=== PATIENT | male | born 1950 | race Caucasian/White ===

== ENCOUNTER 2021-07-14 00:17 | Inpatient (IN) | payer OTHER, MEDICARE, MEDICAID ==
[~2021-07-14] VITALS: Ht 167.6 cm; Wt 101.2 kg
[2021-07-15 01:35] VITALS: BP 134/108; PULSE 90; TEMP 99.1
[2021-07-15] MEDS ORDERED: ELIQUIS 5MG PO (02:16)
[2021-07-15] MEDS ORDERED: PROAIR HFA0.09 MG/AC IH (02:16)
[2021-07-15] MEDS ORDERED: VTAMINC250TA PO (02:16)
[2021-07-15] MEDS ORDERED: ASPIRIN 81M81 MG/TA2 PO (02:17)
[2021-07-15] MEDS ORDERED: LIPITOR 80MG80 MG PO (02:17)
[2021-07-15] MEDS ORDERED: 00186-0370-20 IH (02:18)
[2021-07-15] MEDS ORDERED: ZYRTEC 10MG10 MG PO (02:18)
[2021-07-15] MEDS ORDERED: FERRO-TIME325 MG PO (02:19)
[2021-07-15] MEDS ORDERED: LASIX 40MG TABL40 MG PO (02:19)
[2021-07-15] MEDS ORDERED: PRINIVIL5 MG PO (02:21)
[2021-07-15] MEDS ORDERED: TOPROL XL200 MG PO (02:22)
[2021-07-15] MEDS ORDERED: ALDACTONE 25MG25 M1 PO (02:23)
[2021-07-15] MEDS ORDERED: FLOMAX 0.40.4 MG/CAP PO (02:23)
[2021-07-15] MEDS ORDERED: ONE-A-DAY ESSE1 EACH PO (02:23)
[2021-07-15] MEDS ORDERED: PEPCID 20MG TAB20 MG PO (02:24)
--- NOTE | 2021-07-15 03:07 | NUR ---
ARRIVED TO UNIT VIA EMS, AWAKE, ALERT, ORIENTED X 4, VERY CHALKYITSIK AND EASILY AGGITATED WITH PEOPLE NOT SPEAKING LOUD ENOUGH OR DIRECTLY TO HIM OR TOO MANY PEOPLE TALKING AT ONCE, UPDATED ON PLAN OF CARE, BED BATH GIVEN, HAIR WASHED, LOTION APPLIED, ASSESSMENT COMPLETED.
[2021-07-15 03:25] LABS: INR 1.7 (0.8-3.0); PROTHROMBIN TIME 18.9 SECONDS (9.7-12.8)
[2021-07-15 03:35] LABS: ANION GAP 6 mmol/L (7-16); BLOOD UREA NITROGEN 33 mg/dL (9-20); CALCIUM 8.3 mg/dL (8.4-10.2); CARBON DIOXIDE 28 mmol/L (22-30); CHLORIDE 104 mmol/L (98-107); CREATININE, serum 1.76 (0.66-1.25); GLUCOSE 105 mg/dL (74-106); POTASSIUM 5.5 mmol/L (3.4-5.0); SODIUM 137 mmol/L (137-145)
[2021-07-15 03:41] LABS: SALICYLATE < 1.0 mg/dL
[2021-07-15 03:46] LABS: TROPONIN-I 0.024 ng/mL (0.000-0.035)
--- NOTE | 2021-07-15 03:46 | NUR ---
Vancomycin Initial Dosing Pharmacy Note Ordering provider: Madisyn Dinh E., DO Indication/duration: RLE CELLULITIS TROUGH GOAL: 10-20 HX: NONE IDENTIFIED BMI: 36.7 WT: 103 KG ADJBW: 79 KG OSH SCR: 1.72 ADJBW ESTCRCL ~ 46 ML/MIN T1/2 ~ 16H TMAX: 99.1 OSH LABS WBC: 17.5 LA: 3.2 BCX2 IN PROCESS NO IMAGING AVAILABLE AT THIS TIME PER PROVIDER, PT RECEIVED VANCO 1GM AT OSH ON 07/15 @ 0000. WILL START A MAINTENANCE REGIMEN OF 1.25 GM Q24H, AND START 8 HOURS AFTER INITIAL 1 GM DOSE TO ACCOUNT FOR SUB-OPTIMAL LOADING DOSE. WILL MONITOR RENAL FUNCTION, MICRO, AND TREATMENT PLAN FOR NEED TO ADJUST THERAPY. THANK YOU FOR THIS DOSING CONSULT!
[2021-07-15 04:14] VITALS: BP 154/93; PULSE 96; TEMP 97.5
[2021-07-15 04:18] LABS: COLLECTION METHOD CLEAN CATCH
[2021-07-15 04:23] LABS: PH 5 (5-8); SQUAMOUS EPITHELIAL 0-2 /hpf; URINE APPEARANCE Clear; URINE BACTERIA None Seen /hpf; URINE BILIRUBIN Negative (NEGATIVE); URINE BLOOD 2+ (NEGATIVE); URINE COLOR Yellow; URINE GLUCOSE Negative (NEGATIVE); URINE KETONE Negative (NEGATIVE); URINE LEUKOCYTE ESTERASE Negative (NEGATIVE); URINE NITRATE Negative (NEGATIVE); URINE PROTEIN(semi-quant) Negative (NEGATIVE); URINE UROBILINOGEN Negative (NEGATIVE)
[2021-07-15 06:43] LABS: MEAN CELL VOLUME 122 fl (80.0-100.0); MEAN CORPUSCULAR HGB CONC 29 g/dl (33.0-37.0); MEAN PLATELET VOLUME 10.6 fl (7.4-10.4); PLATELET COUNT 163 K/mm3 (130-400); RED BLOOD COUNT 2.63 M/mm3 (4.20-5.60); REDCELL DISTRIBUTION WIDTH-CV 18.1 % (11.5-14.5)
[2021-07-15 06:47] LABS: HEMATOCRIT 32.1 % (42.0-52.0); HEMOGLOBIN 9.4 g/dl (13.5-18.0); MEAN CORPUSCULAR HEMOGLOBIN 36 pg (27.0-31.0)
[2021-07-15 08:32] LABS: BAND 21 % (0-10); HYPOCHROMIA 3+; LYMPHOCYTE 3 % (20.0-51.0); NEUTROPHILS 75 % (42.0-75.2); SCHISTOCYTES 1+
[2021-07-15 08:33] LABS: OVALOCYTES 1+; POIKILOCYTOSIS 1+
[2021-07-15 09:41] LABS: RETIC # 0.1 M/mm3 (0.02-0.16); RETIC % 3.7 % (0.5-3.52)
[2021-07-15 09:51] LABS: CALCIUM 8.2 mg/dL (8.4-10.2); CREATININE, serum 1.92 (0.66-1.25); POTASSIUM 5.6 mmol/L (3.4-5.0)
--- NOTE | 2021-07-15 09:52 | NUR ---
pharmaceutical worker met with patient to discuss discharge plan. Patient reports that he lives alone at home in [place]. Patient states he is fully independent with his activities of daily living and uses a cane/walker as he feels like he needs it. [facility] and [facility]. Patient is currently on O2 in the room and he reports that he does use O2 at home. Patient states he get his O2 through the [facility]. Patient does not have a DPOA-HC and does not wish to establish one. Patient is not but reports that he "thinks" he has 4-5 kinds spread through out the states. Patient was able to name two sons, Luis Eduardo and Socrates, however states he does not have phone numbers for them and does not talk/have a relationship with his children. pharmaceutical worker educated the patient that since he does not have a DPOA-HC that his children are his legal agents. pharmaceutical worker will follow the patients needs. Patient reports that he has [facility], but does not have any other insurance. *Discharge plan: pending pt/ot rec's*
[2021-07-15 09:57] LABS: IRON,SERUM 19 ug/dL (35-150)
[2021-07-15 10:06] LABS: TOTAL IRON BINDING CAPACITY 369 ug/dL (261-462)
--- NOTE | 2021-07-15 10:15 | NUR ---
First visit from the correspondence review clerk. No needs right now.
--- NOTE | 2021-07-15 10:27 | NUR ---
Per ED documentaion, there is evidence of self neglect and unsafe living conditions. APS report made by this psychiatric social worker : case # [id number]
--- NOTE | 2021-07-15 10:35 | NUR ---
Assessment completed, alert/oriented, hard of hearing , wounds/blisters to bilateral lower extrm., 3-4+ edema and weeping, wound culture obtained and sent to lab, patient wears O2 @ 3L. at baseline / he reports breathing is worse at this time, lungs are diminished throughout with exp. wheezing throughout, O2 sats are WNL on the 3L. via Nasal cannula, heart irregular/ a.fib on tele and rate is controlled, IV Lasix and morning meds given, patient is unable to ambulate and is a heavy assist even just for pivot transfers, PT/ OT ordered, he has very poor hygiene and overall self care, night shift manager provided bed bath and intense effort to improve hygiene, skin integrity overall is poor with redness/excoriation to his under arms/ groin/ panis and skin folds, we are applying Desenex powder for yeast and moisture management, will sarabjitnue to monitor
[2021-07-15 12:26] VITALS: BP 119/94; PULSE 84; TEMP 97.9
[2021-07-15 16:33] VITALS: BP 92/47; PULSE 72; TEMP 98
[2021-07-15 18:18] LABS: PROCALCITONIN 0.58 ng/mL (0.00-0.09)
[2021-07-15 19:17] VITALS: BP 104/48; PULSE 81
--- NOTE | 2021-07-15 20:00 | NUR ---
Assessment complete. Patient complains of pain in his coccyx and BLE; PRN dilaudid administered. Pt alert and oriented and wears 3 liters O2 with no signs of increased WOB. Lungs are clear with diminished bases and HR is irregular with normal rate. BLE are edematous, redenned and have multiple wounds throughout. Bumex gtt infusing. Dawn catheter in place and draining dark urine. Comfort measures provided and call light within reach.
[2021-07-16] VITALS (7 sets, daily range): BP systolic 94–124; BP diastolic 42–56; PULSE 70–100; TEMP 98.4–98.9
[2021-07-16 07:03] LABS: BASO % 0.3 % (0.0-2.0); EOS # 0.1 (0.0-0.7); GRAN # 11.6 (1.4-6.5); GRAN % 85.1 % (42.2-75.2); LYMPH # 0.7 (1.2-3.4); LYMPH % 5.4 % (20.0-51.0); MEAN CORPUSCULAR HGB CONC 30 g/dl (33.0-37.0); MEAN PLATELET VOLUME 10.3 fl (7.4-10.4); MONO % 7.1 % (1.7-9.3); PLATELET COUNT 148 K/mm3 (130-400); RED BLOOD COUNT 2.56 M/mm3 (4.20-5.60)
[2021-07-16 07:05] LABS: HEMATOCRIT 29.1 % (42.0-52.0); HEMOGLOBIN 8.8 g/dl (13.5-18.0); MEAN CELL VOLUME 114 fl (80.0-100.0); MEAN CORPUSCULAR HEMOGLOBIN 34 pg (27.0-31.0)
[2021-07-16 07:24] LABS: CALCIUM 8.9 mg/dL (8.4-10.2); CREATININE, serum 1.86 mg/dL (0.72-1.25); POTASSIUM 4.7 mmol/L (3.5-4.5)
--- NOTE | 2021-07-16 14:19 | NUR ---
television maintenance worker contacted the [facility] for emergency contact information. Patient see's the [facility] and is on Team 2. They have his sister Jayleen ([phone]), who resides in [place], listed as his emergency contact.
--- NOTE | 2021-07-16 15:23 | NUR ---
SW met with patient at bedside to discuss recommendations of rehab. Patient had difficulty clarifying where he had been to receive treatment for his feet but he thinks it was in [place]. When discussing location, he stated he would prefer to be near his home - [facility] [place]. Patient remains on IV antibiotics. SW sent referrals to [facility] [facility], [facility] (in [place]) [facility] and [facility].
[2021-07-17] VITALS (7 sets, daily range): BP systolic 115–134; BP diastolic 49–70; PULSE 75–108; TEMP 97.8–98.7
[2021-07-17 07:58] LABS: MEAN CELL VOLUME 112 fl (80.0-100.0); MEAN CORPUSCULAR HGB CONC 31 g/dl (33.0-37.0); MEAN PLATELET VOLUME 10.3 fl (7.4-10.4); PLATELET COUNT 154 K/mm3 (130-400); RED BLOOD COUNT 2.48 M/mm3 (4.20-5.60); REDCELL DISTRIBUTION WIDTH-CV 17.8 % (11.5-14.5)
[2021-07-17 07:59] LABS: HEMATOCRIT 27.7 % (42.0-52.0); HEMOGLOBIN 8.5 g/dl (13.5-18.0); MEAN CORPUSCULAR HEMOGLOBIN 34 pg (27.0-31.0)
[2021-07-17 08:35] LABS: BAND 2 % (0-10); EOSINOPHIL 1 % (0-4); LYMPHOCYTE 4 % (20.0-51.0); NEUTROPHILS 87 % (42.0-75.2)
[2021-07-17 08:38] LABS: ANISOCYTOSIS 1+; HYPOCHROMIA 3+; PLATELET ESTIMATE NORMAL (NORMAL)
[2021-07-17 08:48] LABS: CALCIUM 9.4 mg/dL (8.4-10.2); CREATININE, serum 1.29 mg/dL (0.72-1.25); POTASSIUM 4.4 mmol/L (3.5-4.5)
[2021-07-18] VITALS (13 sets, daily range): BP systolic 90–153; BP diastolic 45–83; PULSE 79–100; TEMP 97.3–99.4
--- NOTE | 2021-07-18 06:13 | NUR ---
PT HAD UNEVENTFUL NIGHT, 02 REMAINS AT 4L NC SATURATING 92 -93 PERCENT, PT OUTPUT NOTED AND RECORDED, PT REPORTS PAIN TO BLE 4/10. ANTIBIOTICS ADMINSITERED ORDERED. MEDICATION ADMINISTERED ORDERED. VSS. PT CONSENT SIGNED AND PLACED IN CHART FOR EGD. PT EXPRESSES NO ADDITIONAL NEEDS AT THIS TIME. CALL LIGHT WTIHIN REACH.
[2021-07-18 06:49] LABS: MEAN CELL VOLUME 110 fl (80.0-100.0); MEAN CORPUSCULAR HGB CONC 32 g/dl (33.0-37.0); MEAN PLATELET VOLUME 10.6 fl (7.4-10.4); PLATELET COUNT 168 K/mm3 (130-400); RED BLOOD COUNT 2.51 M/mm3 (4.20-5.60); REDCELL DISTRIBUTION WIDTH-CV 17.3 % (11.5-14.5)
[2021-07-18 06:52] LABS: HEMATOCRIT 27.5 % (42.0-52.0); HEMOGLOBIN 8.7 g/dl (13.5-18.0); MEAN CORPUSCULAR HEMOGLOBIN 35 pg (27.0-31.0)
[2021-07-18 07:07] LABS: ALBUMIN 2.7 gm/dL (3.4-4.8); CALCIUM 9.4 mg/dL (8.4-10.2); CREATININE, serum 1.09 mg/dL (0.72-1.25); MAGNESIUM 1.4 mg/dL (1.6-2.6); PHOSPHOROUS 3.8 mg/dL (2.3-4.7); POTASSIUM 4.3 mmol/L (3.5-4.5)
--- NOTE | 2021-07-18 07:56 | NUR ---
PT RECEIVED REPORT FROM JULIO CHAVEZ. PT AWAKE/ALERT IN BED. DENIES PAIN. NO NEEDS AT THIS TIME. CALL LOMBARDI IN REACH
[2021-07-18 08:15] LABS: BAND 2 % (0-10); EOSINOPHIL 3 % (0-4); LYMPHOCYTE 11 % (20.0-51.0); NEUTROPHILS 75 % (42.0-75.2); NUCLEATED RED BLOOD CELL 1 (0-6); PLATELET ESTIMATE NORMAL (NORMAL)
[2021-07-18 08:16] LABS: ANISOCYTOSIS 1+; HYPOCHROMIA 1+
--- NOTE | 2021-07-18 15:46 | NUR ---
PT WENT DOWN FOR EGD
--- NOTE | 2021-07-18 16:45 | NUR ---
PT RETURNED FROM EGD. VITAL SIGNS STABLE. PT AWAKE/ALERT/ORIENT. DENIES PAIN
--- NOTE | 2021-07-18 18:00 | NUR ---
PT BP DROPPED TO 77/60. NS RUN OPEN IV. PT BP CAME UP TO 91/47. PT ASYMPTOMATIC, WITH SOME A-FIB RVR W/PVCs. CHARGE NURSE, ANU NOTIFIED. PT STABLE. NORMAL HEART RATE AGAIN. LATEST VITALS 99/50, 84, 93% ON 3L O2, 24 RESPIRATIONS. PT SITTING UP IN BED WATCHING TV. DENIES PAIN. NO OTHER NEEDS AT THIS TIME. WILL CONTINUE TO MONITOR.
--- NOTE | 2021-07-18 18:03 | NUR ---
PT WOUND CARE PERFORMED AT 1730 ON BLE
--- NOTE | 2021-07-18 18:05 | NUR ---
PT HAD EGD THIS AFTERNOON W/BIOPSY. PT HAD EPISODE OF HYPOTENSION, BUT IS STABLE NOW. PT DENIES PAIN. SITTING UP IN BED WATCHING TV. NO NEEDS AT THIS TIME. CALL LOMBARDI IN REACH. WILL CONTINUE TO MONITOR
--- NOTE | 2021-07-18 19:30 | NUR ---
Bedside shift report received, assumed care for shift manager. Assessment complete. A&Ox3. Very grouchy tonight-yelling/cursing at staff-yells out when barely touched. VS stable. Blood pressure has improved since episode of hypotension and receiving fluid bolus. Dawn cath with clear yellow output. Bilat lower extremities with fresh dressing change-gauze/abd/kerlix. Plan of care discusse for this shift to include Meds/calling for questions/concerns. Verbalizes understanding/denies needs. Call light in reach. Will monitor.
[2021-07-19] VITALS (7 sets, daily range): BP systolic 90–108; BP diastolic 44–62; PULSE 75–93; TEMP 97.5–98.9
--- NOTE | 2021-07-19 06:07 | NUR ---
Slept well this shift. Denied pain/nausea/shortness of breath. VS remained stable. Dawn cath with clear yellow urine. Tele reports A-Fib. O2@4L/NC. Denies current needs. Call light in reach. Will monitor.
[2021-07-19 06:43] LABS: MEAN CELL VOLUME 110 fl (80.0-100.0); MEAN CORPUSCULAR HGB CONC 31 g/dl (33.0-37.0); MEAN PLATELET VOLUME 10.5 fl (7.4-10.4); PLATELET COUNT 185 K/mm3 (130-400); RED BLOOD COUNT 2.52 M/mm3 (4.20-5.60); REDCELL DISTRIBUTION WIDTH-CV 17.3 % (11.5-14.5)
[2021-07-19 06:49] LABS: HEMATOCRIT 27.7 % (42.0-52.0); HEMOGLOBIN 8.6 g/dl (13.5-18.0); MEAN CORPUSCULAR HEMOGLOBIN 34 pg (27.0-31.0)
[2021-07-19 07:05] LABS: CALCIUM 8.8 mg/dL (8.4-10.2); CREATININE, serum 1.33 mg/dL (0.72-1.25); MAGNESIUM 1.9 mg/dL (1.6-2.6); POTASSIUM 4.2 mmol/L (3.5-4.5)
[2021-07-19 07:28] LABS: BAND 15 % (0-10); EOSINOPHIL 1 % (0-4); LYMPHOCYTE 4 % (20.0-51.0); METAMYELOCYTE 3 % (0-0); NEUTROPHILS 68 % (42.0-75.2); OVALOCYTES 1+; PLATELET ESTIMATE NORMAL (NORMAL)
--- NOTE | 2021-07-19 08:34 | NUR ---
Pt assessment complete. Pt is sitting up in bed upon entry, he is A/O x4. His breathing is even and unlabored on 4L O2 via NC. Pt denies any SOB. States he has some soreness to the lower legs after PT this am. No N/V/D. Breakfast ordered for patient. Nereyda GAXIOLA. No further needs.
--- NOTE | 2021-07-19 13:38 | NUR ---
LIYA faxed referral to [facility]; spoke with Nain and he will review referral. This worker attempted to talk to patient about referral and family contacts but patient was sleeping and unable to arounse him. LIYA will try later
--- NOTE | 2021-07-19 18:27 | NUR ---
Dressings to bilateral lower legs changed, xeroform, nonstick pads and krilex placed. Tylenol administered for pain. Nereyda GAXIOLA. Isolation precautions in place.
[2021-07-20 04:50] VITALS: BP 104/42; PULSE 83; TEMP 98.8
--- NOTE | 2021-07-20 05:44 | NUR ---
pt had uneventful night, antibiotics administered as ordered, 02 4l nc, ble dressings c/d/i. All needs met. call light within reach
[2021-07-20 06:41] LABS: MEAN CELL VOLUME 110 fl (80.0-100.0); MEAN CORPUSCULAR HGB CONC 31 g/dl (33.0-37.0); MEAN PLATELET VOLUME 10.5 fl (7.4-10.4); PLATELET COUNT 188 K/mm3 (130-400); RED BLOOD COUNT 2.44 M/mm3 (4.20-5.60); REDCELL DISTRIBUTION WIDTH-CV 17.5 % (11.5-14.5)
[2021-07-20 06:48] LABS: HEMATOCRIT 26.8 % (42.0-52.0); HEMOGLOBIN 8.3 g/dl (13.5-18.0); MEAN CORPUSCULAR HEMOGLOBIN 34 pg (27.0-31.0)
[2021-07-20 07:13] LABS: CALCIUM 8.6 mg/dL (8.4-10.2); CREATININE, serum 1.52 mg/dL (0.72-1.25)
[2021-07-20 07:31] LABS: BAND 15 % (0-10); EOSINOPHIL 2 % (0-4); LYMPHOCYTE 6 % (20.0-51.0); METAMYELOCYTE 1 % (0-0); MYELOCYTE 2 % (0-0); NEUTROPHILS 63 % (42.0-75.2)
[2021-07-20 07:32] LABS: ANISOCYTOSIS 2+; MICROCYTOSIS 2+
[2021-07-20 07:33] LABS: OVALOCYTES 1+; PLATELET ESTIMATE NORMAL (NORMAL); TEAR DROP CELLS 1+
[2021-07-20 08:10] VITALS: BP 99/59; PULSE 87; TEMP 97.9
--- NOTE | 2021-07-20 11:40 | NUR ---
LIYA met with Nain from [facility]; he is meeting with patient at this time
[2021-07-20 12:44] VITALS: BP 101/52; PULSE 89; TEMP 98
[2021-07-20 15:33] VITALS: BP 111/53; PULSE 80; TEMP 97.8
[2021-07-20 19:44] VITALS: BP 112/48; PULSE 80; TEMP 98.5
[2021-07-20 22:17] VITALS: BP 93/46; PULSE 84
[2021-07-21 04:00] VITALS: BP 105/54; PULSE 80; TEMP 98.3
--- NOTE | 2021-07-21 05:36 | NUR ---
pt had uneventful night, 02 3.5L, antibiotics adminsitered as ordered, ble dressings c/d/i, becker care conducted, all needs met. call light within reach.
[2021-07-21 07:44] VITALS: BP 117/50; PULSE 95; TEMP 98.9
[2021-07-21 08:04] LABS: MEAN CELL VOLUME 112 fl (80.0-100.0); MEAN CORPUSCULAR HGB CONC 30 g/dl (33.0-37.0); MEAN PLATELET VOLUME 10.5 fl (7.4-10.4); PLATELET COUNT 195 K/mm3 (130-400); RED BLOOD COUNT 2.59 M/mm3 (4.20-5.60); REDCELL DISTRIBUTION WIDTH-CV 17.7 % (11.5-14.5)
[2021-07-21 08:13] LABS: HEMOGLOBIN 8.8 g/dl (13.5-18.0); MEAN CORPUSCULAR HEMOGLOBIN 34 pg (27.0-31.0)
[2021-07-21 08:28] LABS: CALCIUM 8.7 mg/dL (8.4-10.2); CREATININE, serum 1.49 mg/dL (0.72-1.25); POTASSIUM 4.2 mmol/L (3.5-4.5)
[2021-07-21 08:57] LABS: BAND 5 % (0-10); BASOPHIL 1 % (0-2); EOSINOPHIL 4 % (0-4); LYMPHOCYTE 6 % (20.0-51.0); METAMYELOCYTE 2 % (0-0); MYELOCYTE 5 % (0-0); NEUTROPHILS 71 % (42.0-75.2)
[2021-07-21 09:00] LABS: HYPOCHROMIA 3+; PLATELET ESTIMATE NORMAL (NORMAL)
--- NOTE | 2021-07-21 10:04 | NUR ---
Request from Nain (Addi) for LIYA to ask patient his "team color" but patient had no idea what this meant. Patient states he did not have a doctor in [place] but he has been seeing (?) Jose at the [place]. Patient believes this is actually a P.A. LIYA contacted Nain to inform him of the above info. LIYA will contact [facility] to inform them of [facility] as the "nearest" hospital for patient. LIYA will continue to follow.
[2021-07-21 12:49] VITALS: BP 114/52; PULSE 94
--- NOTE | 2021-07-21 13:43 | NUR ---
Angélica with [facility] [employer] calls social media job titles and advised that they have an open case and are attempting to meet with patient. Worker advised of hospitalization and discharge planning. Angélica states they will plan to visit patient in the hospital today. Worker confirmed that patient's primary care provider is [facility] [place]. Radha, nurse in [facility] patient's last contact with Dr Garcia was a phone call visit in December of 2020. Radha stated patient has refused home telehealth visit set up.
--- NOTE | 2021-07-21 14:31 | NUR ---
LIYA recd call from [facility] (Asya), stating they were responding to a referral sent to them last week. This worker discussed d/c planning with Arabella Cabrera and she [facility].
[2021-07-21 15:57] VITALS: BP 124/57; PULSE 85
[2021-07-21 20:22] VITALS: BP 116/56; PULSE 101; TEMP 99.8
--- NOTE | 2021-07-21 22:06 | NUR ---
PT WOUND CARE CONDUCTED AT 2200 THIS NIGHT, PETROLEUM PAD, KERLEX, GAUZE PADS, AND GAUZE DRESSING USED ON BLE. PT TOLERATED DRESSING CHANGE WELL. DRESSING C/D/I.
[2021-07-21 23:09] VITALS: BP 107/58; PULSE 90; TEMP 98.7
[2021-07-22 03:16] VITALS: BP 130/63; PULSE 82; TEMP 98.9
--- NOTE | 2021-07-22 04:06 | NUR ---
TELE CALLED THIS NURSE TO INFORM OF A 7BEAT VTACH RUN, PT DENIES CHEST PAIN,SOA. VSS, PT STATES " I WAS PICKING AT THE STICKERS BECAUSE THEY ARE ITCHY", REDNESS AND IRRITATION NOTED ON PT LA LEAD, THIS NURSE CLEANED PT'S AREA OF IRRITAION AND PLACED NEW ELECTRODES.
--- NOTE | 2021-07-22 06:14 | NUR ---
PT HAD UNEVENTFUL NIGHT. 02 4LNC, ANTIBIOTICS ADMINISTERED ORDERED. ALL NEEDS MET. CALL LIGHT WITHIN REACH. CONTACT PRECAUTIONS REMAIN IN PLACE.
[2021-07-22 06:55] LABS: MEAN CELL VOLUME 110 fl (80.0-100.0); MEAN CORPUSCULAR HGB CONC 31 g/dl (33.0-37.0); MEAN PLATELET VOLUME 10.4 fl (7.4-10.4); PLATELET COUNT 199 K/mm3 (130-400); REDCELL DISTRIBUTION WIDTH-CV 17.5 % (11.5-14.5)
[2021-07-22 06:58] LABS: HEMATOCRIT 28.7 % (42.0-52.0); HEMOGLOBIN 8.8 g/dl (13.5-18.0); MEAN CORPUSCULAR HEMOGLOBIN 34 pg (27.0-31.0)
[2021-07-22 07:31] LABS: CALCIUM 9.1 mg/dL (8.4-10.2); CREATININE, serum 1.39 mg/dL (0.72-1.25); POTASSIUM 4.1 mmol/L (3.5-4.5)
[2021-07-22 07:44] VITALS: BP 113/64; PULSE 77; TEMP 98.2
--- NOTE | 2021-07-22 07:53 | NUR ---
LOLY SANDOVAL REPORTED INC SOMNOLENCE FROM PT. VITALS NORMAL. WENT TO ASSESS PT. PT WOULD FALL ASLEEP WHILE TRYING TO ASSESS NEURO STATUS. TAINA CALLED AND ORDERED TO CONTINUE TO MONITOR. RECIEVED CALL FROM TELE AT 0801 SAYING PT HAD 18 BEAT RUN OF VTACH BUT WENT BACK INTO AFIB. TAINA KATZ NOTIFIED AND CAME TO ASSESS PT. TAINA ABLE TO AROUSE PT AND DO NEURO ASSESSMENT, PT THEN ALERT ENOUGH TO TAKE MORNING MEDICATIONS. HELPED PT ORDER BREAKFAST. NO OTHER NEEDS.
[2021-07-22 10:45] LABS: MAGNESIUM 2.1 mg/dL (1.6-2.6)
[2021-07-22 10:53] LABS: TROPONIN-I 0.024 ng/mL (0.00-0.033)
[2021-07-22 12:15] VITALS: BP 115/60; PULSE 67; TEMP 97.8
--- NOTE | 2021-07-22 15:17 | NUR ---
kitchen worker met with patient to discuss placement options. Patient will need to start a [employer] application. SW facilitated getting the patient in contact with his bank and they have sent copies of bank statements. Information will be passed along to our financial assistance team to begin this process. kitchen worker addressed the need/importance of completing a DPOA-HC. The emergency contact he has on file with the [facility] is his sister Jayleen, who the patient reports passed this past December. He is exceptionally unwilling to provide additional contacts for a DPOA-HC. kitchen worker addressed the patients participation with PT/OT. Patient reports that his feet hurting are the main reason to not working with them, however is willing to try walking if he was supported with slipper socks. Nursing staff notified. Attempts were made to reach PT but were unsuccessful. Patient received his Covid vaccine through [facility] in [place].
[2021-07-22 16:27] VITALS: BP 131/51; PULSE 84; TEMP 98.1
--- NOTE | 2021-07-22 17:29 | NUR ---
PT PLEASANT, AOX4, DINNER IN FRONT OF PT, SPRITE BROUGHT IN PER PT REQUEST, PT DOES NOT REPORT PAIN AT THIS TIME, NO OTHER NEEDS
--- NOTE | 2021-07-22 21:05 | NUR ---
ALERT AND OX4. RESTING QUIELTY TONIGHT. DENIES CHEST PAIN SOA OR DIZZY. YARIEL LOWER LEG CELLUTIS WRAPPED IN GAUZE. NO C/O GENERAL PAIN . WALTON CATH TO DD YELLOW URINE W SEDIMENT. PM MEDS GIVEN. CALL LIGHT WI REACH. PRECAUTIONS MAINTAINED.
[2021-07-22 21:30] VITALS: BP 109/45; PULSE 72; TEMP 98.5
[2021-07-23 04:07] VITALS: BP 120/61; PULSE 81; TEMP 98.4
--- NOTE | 2021-07-23 05:41 | NUR ---
RESTED THROUGH THE NIGHT WIHTOUT INCIDENT. NEEDS MET.
[2021-07-23 06:02] LABS: MEAN CELL VOLUME 108 fl (80.0-100.0); MEAN CORPUSCULAR HGB CONC 31 g/dl (33.0-37.0); MEAN PLATELET VOLUME 10.3 fl (7.4-10.4); PLATELET COUNT 230 K/mm3 (130-400); RED BLOOD COUNT 2.73 M/mm3 (4.20-5.60); REDCELL DISTRIBUTION WIDTH-CV 17.7 % (11.5-14.5)
[2021-07-23 06:10] LABS: HEMATOCRIT 29.4 % (42.0-52.0); HEMOGLOBIN 9.2 g/dl (13.5-18.0); MEAN CORPUSCULAR HEMOGLOBIN 34 pg (27.0-31.0)
[2021-07-23 06:21] LABS: CALCIUM 9.1 mg/dL (8.4-10.2); CREATININE, serum 1.27 mg/dL (0.72-1.25); MAGNESIUM 1.9 mg/dL (1.6-2.6); POTASSIUM 4.1 mmol/L (3.5-4.5)
[2021-07-23 07:07] LABS: BAND 8 % (0-10); BASOPHIL 1 % (0-2); EOSINOPHIL 7 % (0-4); LYMPHOCYTE 14 % (20.0-51.0); METAMYELOCYTE 1 % (0-0); MYELOCYTE 1 % (0-0); NEUTROPHILS 66 % (42.0-75.2); NUCLEATED RED BLOOD CELL 1 (0-6)
[2021-07-23 07:08] LABS: ANISOCYTOSIS 2+; HYPOCHROMIA 2+; OVALOCYTES 1+
[2021-07-23 07:44] VITALS: BP 124/59; PULSE 89; TEMP 97.8
[2021-07-23 11:38] VITALS: BP 117/54; PULSE 65; TEMP 98.2
[2021-07-23 16:18] VITALS: BP 102/44; PULSE 75; TEMP 98.2
--- NOTE | 2021-07-23 16:22 | NUR ---
Supervisor [employer] spoke with Asya at [facility] and confirmed that they can accept once Medicaid is applied for and a CARE assessment is completed. Asya advised they also need to find a local physician who will follow patient upon admission. LIYA collaborated with [employer] Counselor who has met with patient and get everything submitted on Monday. LIYA then met with patient and completed CARE assessment. LIYA faxed CARE to [facility]. LIYA also provided copy to patient. LIYA discussed discharge plan with patient and advised that [facility] is the accepting facility. Patient verbalized understanding. LIYA followed up with Asya at [place] who advised they still don't have physician acceptance at this time. Asya anticipates they should have an answer by Monday. Discharge Plan: [facility].
--- NOTE | 2021-07-23 17:19 | NUR ---
Pt assessment completed and charted, meds administered per mar. Pt refusing bed bath or shower. pt has slept most of day, uninterested in cares but cooperative. BLE wounds, intact, dressing changed post rounds. Dawn in place, cath care performed, draining yellow urine, clear. Pt denies pain, states BLE pain has improved. Able to make needs known. Call light within reach.
[2021-07-23 19:37] VITALS: BP 115/43; PULSE 77; TEMP 98.7
--- NOTE | 2021-07-23 20:46 | NUR ---
ALERT AND OX4. DENIES SOA, CHEST PAIN OR DIZZY. NO GENERAL PAIN. PM MEDS GIVEN. IV ZOSYN HUNG. WALTON CATH TO DD. BILATERAL LOWER LEG WRAPPED W LILIANA GAUZE AND XERFOAM. CALL LIGHT WI REACH. NEEDS MET.
[2021-07-23 23:11] VITALS: BP 117/52; PULSE 76; TEMP 98.2
[2021-07-24 03:02] VITALS: BP 125/68; PULSE 88; TEMP 98.8
--- NOTE | 2021-07-24 04:56 | NUR ---
PT RESTED THOUGH THE NIGHT WITHOUT INCIDENT. NEEDS MET.
[2021-07-24 05:41] LABS: PATHOLOGY DIFF REVIEW OK +
--- NOTE | 2021-07-24 06:50 | NUR ---
Bedside shift report complete. Report received from JULIO Martinez. Pt. sitting up in bed, awake. O2 in place and becker cath draining yellow urine. Pt. reports he is waiting for breakfast and denies further needs. Call light and belongings in reach.
[2021-07-24 07:08] LABS: MEAN CELL VOLUME 110 fl (80.0-100.0); MEAN CORPUSCULAR HGB CONC 31 g/dl (33.0-37.0); MEAN PLATELET VOLUME 10.2 fl (7.4-10.4); PLATELET COUNT 220 K/mm3 (130-400); RED BLOOD COUNT 2.78 M/mm3 (4.20-5.60); REDCELL DISTRIBUTION WIDTH-CV 17.9 % (11.5-14.5)
[2021-07-24 07:19] LABS: HEMATOCRIT 30.5 % (42.0-52.0); HEMOGLOBIN 9.5 g/dl (13.5-18.0); MEAN CORPUSCULAR HEMOGLOBIN 34 pg (27.0-31.0)
[2021-07-24 07:36] LABS: CALCIUM 8.8 mg/dL (8.4-10.2); CREATININE, serum 1.24 mg/dL (0.72-1.25); POTASSIUM 3.7 mmol/L (3.5-4.5)
[2021-07-24 08:00] VITALS: BP 122/54; PULSE 86; TEMP 98.8
[2021-07-24 08:24] LABS: EOSINOPHIL 10 % (0-4); NUCLEATED RED BLOOD CELL 1 (0-6)
[2021-07-24 08:25] LABS: ANISOCYTOSIS 2+; BAND 7 % (0-10); HYPOCHROMIA 2+; NEUTROPHILS 65 % (42.0-75.2); PLATELET ESTIMATE NORMAL (NORMAL)
[2021-07-24 08:26] LABS: OVALOCYTES 1+
[2021-07-24 08:27] LABS: TEAR DROP CELLS 1+
[2021-07-24 08:29] LABS: LYMPHOCYTE 10 % (20.0-51.0); MYELOCYTE 3 % (0-0)
--- NOTE | 2021-07-24 09:41 | NUR ---
Dr. Arenas and in to see pt. this AM. General surgery consult in place, Dr. Fontenot notified on the telephone, Dr. Fontenot reports he will be in to see the patient. Therapy in pt.'s room now to attempt to ambulate.
--- NOTE | 2021-07-24 10:00 | NUR ---
Eliquis was held this AM in case pt. will need a debridement with general surgery. Dr. Arenas was made aware on the phone, she is requesting to hold off on the eliquis until pt. is evaluated by Dr. Fontenot today.
[2021-07-24 12:00] VITALS: BP 120/55; PULSE 93; TEMP 98.5
[2021-07-24 16:19] VITALS: BP 123/54; PULSE 82; TEMP 98.4
--- NOTE | 2021-07-24 18:03 | NUR ---
Pt. progressing w/ plan of care. New IV placed to L forearm today. IV zosyn infusing at this time. Pt.'s landlord is visiting per pt. approval. Needs addressed throughout the day. Dr. Fontenot in to see patient, Dr. Fontenot reports no further OR intervention neccessary for this pt.'s leg wounds. Pt. denies pain. Needs addressed, call light and belongings in reach. Bed alarm on.
[2021-07-24 20:00] VITALS: BP 101/54; PULSE 90; TEMP 98.6
[2021-07-25 00:31] VITALS: BP 115/60; PULSE 97; TEMP 98.4
[2021-07-25 04:01] VITALS: BP 121/62; PULSE 63; TEMP 98.9
--- NOTE | 2021-07-25 05:28 | NUR ---
PT HAD UNEVENTFUL NIGHT, ABX ADMINISTERED ORDERED, 02 4L NC, I&O NOTED AND RECORDED, ALL NEEDS MET. CALL LIGHT WITHIN REACH.
[2021-07-25 07:36] LABS: MAGNESIUM 1.9 mg/dL (1.6-2.6)
[2021-07-25 08:00] VITALS: BP 120/44; PULSE 72; TEMP 98.1
--- NOTE | 2021-07-25 08:00 | NUR ---
Patient sitting up in bed with the TV on. A&Ox4, NISQUALLY. VSS 5L NC O2, no reported SOB. Dawn dependent drainage, clear yellow. Denies pain and discomfort. Contact precautions in place. No further needs expressed. Call light within reach. Bed alarm on
[2021-07-25 09:10] LABS: CREATININE, serum 1.18 mg/dL (0.72-1.25)
[2021-07-25 12:00] VITALS: BP 149/52; PULSE 75
[2021-07-25 16:00] VITALS: BP 104/54; PULSE 73; TEMP 97.6
--- NOTE | 2021-07-25 16:52 | NUR ---
Dawn removed, pericare provided before and after removal. 10ml removed from the balloon. Patient tolerated well. Urinal at the bedside. Nurse instructed the patient to call nursing staff when the patient voided. Call light within reach. Bed alarm on
--- NOTE | 2021-07-25 18:21 | NUR ---
Patient had an uneventful day. Worked with PT and tolerated well. A&Ox4. VSS 3L NC O2, no reported SOB. IV CDI. Dawn removed, patient has not voided, will continue to monitor. Patient aware to call nursing staff after voiding. Denies pain and discomfort. Contact precaution in place. Call light within reach. Bed alarm on
[2021-07-25 19:35] VITALS: BP 144/44; PULSE 69; TEMP 98.3
[2021-07-26 00:08] VITALS: BP 128/54; PULSE 70; TEMP 98.6
[2021-07-26 04:24] VITALS: BP 144/102; PULSE 75; TEMP 98.5
--- NOTE | 2021-07-26 06:14 | NUR ---
PT HAD UNEVENTFUL NIGHT, 02 3L NC, BLE DRESSINGS C/D/I. PT DENIES PAIN AT THIS TIME. ALL NEEDS MET.
[2021-07-26 06:16] VITALS: BP 115/57; PULSE 67; TEMP 98.4
--- NOTE | 2021-07-26 10:19 | NUR ---
Patient sitting in bed eating breakfast upon entering the room. Scheduled medications administered. Patient does not have any complaints at this time realted to his medical care. This RN asked the patient if he was experiencing any pain and he replied, "Yeah, a pain in my ass". Patient then stated he had no pain.
[2021-07-26] MEDS ORDERED: PROTONIX 40MG T40 MG PO (11:05)
[2021-07-26] MEDS ORDERED: ZYLOPRIM 100MG100 MG PO (11:06)
[2021-07-26] MEDS ORDERED: VITAMIN B11000 MCG/M IM (11:07)
--- NOTE | 2021-07-26 11:26 | NUR ---
This RN received report from that [facility] @ [facility].
[2021-07-26 11:32] VITALS: BP 114/51; PULSE 80
--- NOTE | 2021-07-26 14:58 | NUR ---
LIYA contacted Annita, at [facility], to inquire if they can take the patient today. Annita reports that they do have an accepting provider and can take the patient. She states that they would like a copy of the patient's Medicaid application. She states that they can be here around [phone] to pickle maker the patient. LIYA notified Financial Counseling. Financial Counseling completed the Medicaid application this afternoon. LIYA faxed the completed application to [facility] and placed a copy in the patient's discharge packet. LIYA updated the clinical team and the patient. The patient is in agreement with going to the facility. LIYA presented and read the IM form outloud to the patient. The patient verbalized understanding and gave LIYA approval to sign the form on his behalf. The patient is to discharge today, 07/26, to [facility] for a skilled stay. Transportation was scheduled around [id number], via Jenn Rykert. LIYA informed the patient and his RN of the time. They were both agreeable to the time. No additional needs at this time.
--- NOTE | 2021-07-26 15:24 | NUR ---
Patient discharged. Escorted out by Ting Baer RN and transporter from [facility].
== END 2021-07-26 15:15 | DRG 871 ==
LOC: MEDICAL 00:17
PROVIDERS: Family Medicine; Internal Medicine; Nurse Practitioner Family; Physician Assistant; ADMIT Family Medicine
DX: A41.89 Other specified sepsis (principal); J96.21 Acute and chronic respiratory failure with hypoxia; N17.9 Acute kidney failure, unspecified; L03.116 Cellulitis of left lower limb; L03.115 Cellulitis of right lower limb; I47.1 Supraventricular tachycardia; I48.20 Chronic atrial fibrillation, unspecified; I50.20 Unspecified systolic (congestive) heart failure; R65.20 Severe sepsis without septic shock; E83.42 Hypomagnesemia; N40.0 Benign prostatic hyperplasia without lower urinary tract symptoms; E87.5 Hyperkalemia; E78.5 Hyperlipidemia, unspecified; R53.81 Other malaise; J44.9 Chronic obstructive pulmonary disease, unspecified; E79.0 Hyperuricemia without signs of inflammatory arthritis and tophaceous disease; E66.01 Morbid (severe) obesity due to excess calories; Z20.822 Contact with and (suspected) exposure to COVID-19; N40.1 Benign prostatic hyperplasia with lower urinary tract symptoms; R33.8 Other retention of urine; D50.9 Iron deficiency anemia, unspecified; I25.10 Atherosclerotic heart disease of native coronary artery without angina pectoris; I27.20 Pulmonary hypertension, unspecified; E53.8 Deficiency of other specified B group vitamins; D72.829 Elevated white blood cell count, unspecified; Z87.01 Personal history of pneumonia (recurrent); Z79.82 Long term (current) use of aspirin; Z79.01 Long term (current) use of anticoagulants; Z87.442 Personal history of urinary calculi; Z87.891 Personal history of nicotine dependence
CPT/HCPCS: 99223-AI; 99232-AI; 99233-AI; 99239; J1170; J1756; J1940; J2543; J2704; J3370; J3420; J3475; J7030; J7050